=== PATIENT | male | born 1935 | race Caucasian/White ===

== ENCOUNTER 2017-08-16 06:10 | Emergency (ER) | payer OTHER ==
[~2017-08-16] VITALS: Ht 180.3 cm; Wt 87.7 kg
[2017-08-16 06:11] VITALS: TEMP 36.8; Ht 180.3 cm; Wt 87.7 kg
[2017-08-16 06:25] VITALS: O2SAT 93
[2017-08-16 06:43] LABS: BASO % 0.1 %; BASO ABS # 0.02 K/uL (0-0.2); EOS % 0.2 %; EOS ABS # 0.03 K/uL (0-0.5); HEMATOCRIT 41.2 % (42-52); HEMOGLOBIN 14.6 g/dL (14.0-18.0); IG# 0.03 K/uL (0.00-0.02); LYMPH % 6.1 %; LYMPH ABS # 0.87 K/uL (1.2-3.4); MEAN CELL VOLUME 90.2 fL (80-100); MEAN CORPUSCULAR HEMOGLOBIN 31.9 pg (25-34); MEAN CORPUSCULAR HGB CONC 35.4 g/dl (32-36); MEAN PLATELET VOLUME 8.8 fL (7.4-10.4); MONO % 11.3 %; NEUT % 82.1 %; NEUT ABS # 11.67 K/uL (1.4-6.5); PLATELET COUNT 190 K/uL (130-400); RED CELL DISTRIBUTION WIDTH CV 14.1 % (11.5-14.5); RED CELL DISTRIBUTION WIDTH SD 46.7 fL (36.4-46.3); WHITE BLOOD COUNT 14.22 K/uL (4.8-10.8)
--- NOTE | 2017-08-16 06:49 | EMERGENCY ROOM VISIT NOTE ---
History Report prepared by Imelda: Herberth Shafer Under the Supervision of: Dr. Jp Seals D.O. First contact with patient: 06:14 Chief Complaint: FALL Stated Complaint: FALL History of Present Illness The patient is a 81 year old male who presents to the Emergency Room via ALS following a falling episode that occurred around 0330 this morning, 3 hours ago. Per EMS, the patient's found him lying in the bathtub this morning when she got up to use the restroom. The patient had gotten up to use the restroom himself; when he stood up from the toilet he lost his balance and fell backward into the bathtub. He is currently complaining of pain in his hips bilaterally. EMS note that he was also initially complaining of nausea and lower back pain on their evaluation. After initial examination the patient's arrived at bedside who notes that he seems to be at his normal mental status at this time. The patient has a history of a subdural hematoma that required surgery, and is on Coumadin for atrial fibrillation. The subdural was over 5 years ago. Source of History: patient, spouse/significant other, EMS Onset: 3 hours ago Position: leg (bilateral hips) Quality: other (Pain from fall) Timing: other (Hip pain since fall 3 hours ago) Associated Symptoms: + nausea, + back pain Review of Systems See HPI for pertinent positives & negatives. A total of 10 systems reviewed and were otherwise negative. Past Medical & Surgical Medical Problems: (1) Atrial fibrillation (2) HTN (hypertension) (3) Stroke (4) Subdural hematoma Atrial fibrillation HTN (hypertension) Family History Non-contributory secondary to age. Social History Smoking Status: Never Smoker Marital Status: Housing Status: lives with significant other Occupation Status: retired Current/Historical Medications Scheduled Amiodarone Hcl (Cordarone), 200 MG PO DAILY Apixaban (Eliquis), 5 MG PO DAILY Atorvastatin (Lipitor), 10 MG PO DAILY Cholecalciferol (Vitamin D3), 1,000 MG PO DAILY Coenzyme Q10 (Ubidecarenone) (Co Q-10), 1 CAP PO DAILY Bocbzdoadfw-Odaegpuxrlm-Tdh C- (Glucosamine Chondroitin), 1 TAB PO DAILY Lamotrigine (Lamotrigine Er), 50 MG PO DAILY Lamotrigine (Lamotrigine Er), 300 MG PO DAILY Levetiracetam (Keppra), 1,500 MG PO BID Multiple Vitamins W/ Minerals (Centrum Silver 50+Men), 1 TAB PO DAILY Nebivolol Hcl (Bystolic), 30 MG PO HS [place]-3 Fatty Acids (Fish Oil), 2,000 MG PO BID Verapamil Hcl (Verapamil Hcl Sr), 180 MG PO BID Allergies Coded Allergies: No Known Allergies (Unverified , 08/16/17) Physical Exam Vital Signs Date Time Temp Pulse Resp B/P (MAP) Pulse Ox O2 Delivery O2 Flow Rate FiO2 08/16/17 09:00 70 16 148/86 95 Room Air 08/16/17 08:00 71 20 160/89 96 Room Air 08/16/17 07:35 70 20 173/104 96 Room Air 08/16/17 06:25 93 Room Air 08/16/17 06:19 73 08/16/17 06:11 36.8 74 20 178/100 92 Room Air Physical Exam GENERAL: Patient is awake, alert, and in no acute distress. Patient is resting comfortably and showing no signs of anxiety EYES: The conjunctivae are clear. The pupils are round and reactive. EARS, NOSE, MOUTH AND THROAT: The nose is without any evidence of any deformity. Mucous membranes are moist tongue is midline NECK: There is no tenderness to palpation and ROM did not appear limited secondary to pain. RESPIRATORY: Normal respiratory effort is noted there is no evidence of wheezing rhonchi or rales CARDIOVASCULAR: Regular rate and rhythm noted there no murmurs rubs or gallops normal S1 normal S2 GASTROINTESTINAL: The abdomen is soft. Bowel sounds are present in all quadrants. Abdomen is nontender BACK: No midline tenderness to palpation or or step-off noted range of motion in flexion extension as well as rotation no signs of muscle spasm noted MUSCULOSKELETAL/EXTREMITIES: There is no evidence of gross deformity full range of motion is noted in the hips and shoulders SKIN: There is no obvious evidence of any rash. There are no petechiae, pallor or cyanosis noted. There is trace pedal edema bilaterally with mild venous stasis changes noted. NEUROLOGIC: Patient is awake and oriented to person and place, but not time. The patient appears to be word finding and answers some questions obviously incorrectly. There is no drift appreciated in the upper/lower extremities. There is no facial droop. At this time the significant other feels the patient at baseline. Medical Decision & Procedures ER Provider Diagnostic Interpretation: Radiology results as stated below per my review and radiologist interpretation: CERVICAL SPINE W/O CT DOSE: 493.20 mGycm CLINICAL HISTORY: 82 years-old Male with fall. Acute neck pain status post fall COMPARISON: CT head of same day. TECHNIQUE: Multiple axial CT images of the cervical spine were obtained without contrast. A dose lowering technique was utilized adhering to the principles of ALARA. FINDINGS: Bones appear moderately demineralized. Mild levoscoliosis of the cervical spine. Indeterminate mixed lucent and sclerotic nonaggressive appearing 11 x 6 mm lesion involves the right temporal bone inferior to the mastoid air cells. There is no acute cervical spine fracture or subluxation identified. There are multiple degenerative changes about the cervical spine including severe intervertebral disc space narrowing at C3-C4, C5-C6 and C6-C7 with moderate intervertebral disc space narrowing at C4-C5. Moderate multilevel spondylitic spurring and facet arthrosis. Corticated bone fragments posterior to the seventh spinous process suggests chronic avulsion fracture. 3 mm retrolisthesis C3 on C4 likely secondary to long-standing facet disease. Evaluation for central canal and foraminal narrowing is better assessed by MRI. There is however suggestion of severe bilateral foraminal narrowing at C3-C4 with a least moderate foraminal stenosis bilaterally at C4-C5 and C5-C6. Pacer leads within the distribution of the left subclavian vein are partially imaged. No pneumothorax. Mild calcification of the bilateral carotid bulb. Soft tissues are within normal limits. IMPRESSION: No acute cervical spine fracture or subluxation. The above report was generated using voice recognition software. It may contain grammatical, syntax or spelling errors. Electronically signed by: Sampson Ralph M.D. 08/16/2017 7:11 AM Dictated Date/Time: 08/16/2017 7:06 AM CHEST 2 VIEWS ROUTINE HISTORY: 82 years-old Male WEAKNESS acute weakness with fall COMPARISON: None available TECHNIQUE: PA and lateral views of the chest FINDINGS: Cardiomediastinal and hilar silhouettes are within normal limits. Atherosclerosis of the aorta. Left subclavian pacer is noted with leads overlying the expected locations of the right atrium and right ventricle. Mild biapical pleural-parenchymal scarring without pneumothorax, pleural effusion or overt pulmonary edema. Moderate left hemidiaphragmatic elevation with subsegmental left basilar opacities. Degenerative changes of the shoulders and spine. The patient is mildly rotated. IMPRESSION: 1. No acute process identified. 2. Moderate left hemidiaphragm elevation with subsegmental left basilar opacities suggesting atelectasis/scarring. The above report was generated using voice recognition software. It may contain grammatical, syntax or spelling errors. Electronically signed by: Sampson Ralph M.D. 08/16/2017 7:18 AM Dictated Date/Time: 08/16/2017 7:17 AM HEAD WITHOUT CONTRAST (CT) CLINICAL HISTORY: 82 years-old Male presenting with EVALUATE ALTERED MENTAL STATUS/WEAKNESS, history of intracranial hemorrhage, fall. TECHNIQUE: Multidetector CT imaging of the head was performed without the use of intravenous contrast. IV contrast: None. A dose lowering technique was used consistent with the principles of ALARA (as low as reasonably achievable). COMPARISON: None. CT DOSE (mGy.cm): The estimated cumulative dose is 638.56 mGycm. FINDINGS: Dry Goods Clerk topogram: Postsurgical changes of prior craniotomy. 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 No hydrocephalus. Periventricular and subcortical white matter hypoattenuation, nonspecific but likely indicative of chronic small vessel ischemic change. Old appearing infarct in the right caudate head and left basal ganglia. Minimal calcification evident in the left frontal lobe, possibly postsurgical or sequela of prior hemorrhage. The left pterional craniotomy overlies this region. No mass effect or midline shift. No acute hemorrhage or acute territorial infarct. Trace extra-axial hyperdense material subjacent to the craniotomy likely represents chronic dural changes. No convincing evidence of an acute extra-axial hemorrhage. Paranasal sinuses and mastoid air cells clear. No acute osseous injury of the calvarium. IMPRESSION: 1. No acute intracranial abnormality. 2. Postsurgical changes of left renal craniotomy and encephalomalacia in the left frontal lobe likely from prior reported hemorrhage. 3. Old lacunar infarcts in the basal ganglia suspected. Electronically signed by: Ramon Shields M.D. 08/16/2017 7:06 AM Dictated Date/Time: 08/16/2017 7:00 AM PELVIS 1 OR 2 VIEW ROUTINE HISTORY: 82 years-old Male fall acute pelvic pain status post fall COMPARISON: None available TECHNIQUE: Single AP view of the pelvis FINDINGS: The bones appear mildly demineralized. There are moderate degenerative changes about the bilateral femoral acetabular joints without acute fracture or dislocation identified. Phleboliths of the pelvis are noted. There is no acute fracture or dislocation identified. Degenerative changes of the cervical spine are also noted. IMPRESSION: No acute fracture or dislocation. The above report was generated using voice recognition software. It may contain grammatical, syntax or spelling errors. Electronically signed by: Sampson Ralph M.D. 08/16/2017 7:19 AM Dictated Date/Time: 08/16/2017 7:18 AM Laboratory Results 08/16/17 06:25 Red Blood Count 4.57, Mean Corpuscular Volume 90.2, Mean Corpuscular Hemoglobin 31.9, Mean Corpuscular Hemoglobin Concent 35.4, Mean Platelet Volume 8.8, Neutrophils (%) (Auto) 82.1, Lymphocytes (%) (Auto) 6.1, Monocytes (%) (Auto) 11.3, Eosinophils (%) (Auto) 0.2, Basophils (%) (Auto) 0.1, Neutrophils # (Auto ) 11.67, Lymphocytes # (Auto) 0.87, Monocytes # (Auto) 1.60, Eosinophils # (Auto ) 0.03, Basophils # (Auto) 0.02 08/16/17 06:25 Test 08/16/17 06:25 08/16/17 06:38 White Blood Count 14.22 K/uL (4.8-10.8) Red Blood Count 4.57 M/uL (4.7-6.1) Hemoglobin 14.6 g/dL (14.0-18.0) Hematocrit 41.2 % (42-52) Mean Corpuscular Volume 90.2 fL (80-100) Mean Corpuscular Hemoglobin 31.9 pg (25-34) Mean Corpuscular Hemoglobin Concent 35.4 g/dl (32-36) Platelet Count 190 K/uL (130-400) Mean Platelet Volume 8.8 fL (7.4-10.4) Neutrophils (%) (Auto) 82.1 % Lymphocytes (%) (Auto) 6.1 % Monocytes (%) (Auto) 11.3 % Eosinophils (%) (Auto) 0.2 % Basophils (%) (Auto) 0.1 % Neutrophils # (Auto) 11.67 K/uL (1.4-6.5) Lymphocytes # (Auto) 0.87 K/uL (1.2-3.4) Monocytes # (Auto) 1.60 K/uL (0.11-0.59) Eosinophils # (Auto) 0.03 K/uL (0-0.5) Basophils # (Auto) 0.02 K/uL (0-0.2) RDW Standard Deviation 46.7 fL (36.4-46.3) RDW Coefficient of Variation 14.1 % (11.5-14.5) Immature Granulocyte % (Auto) 0.2 % Immature Granulocyte # (Auto) 0.03 K/uL (0.00-0.02) Prothrombin Time 10.1 SECONDS (9.0-12.0) Prothromb Time International Ratio 1.0 (0.9-1.1) Activated Partial Thromboplast Time 27.3 SECONDS (21.0-31.0) Partial Thromboplastin Ratio 1.1 Anion Gap 7.0 mmol/L (3-11) Est Creatinine Clear Calc Drug Dose 60.3 ml/min Estimated GFR () 78.2 Estimated GFR (Non- 67.5 BUN/Creatinine Ratio 16.4 (10-20) Calcium Level 8.6 mg/dl (8.5-10.1) Magnesium Level 2.0 mg/dl (1.8-2.4) Total Bilirubin 0.7 mg/dl (0.2-1) Direct Bilirubin 0.2 mg/dl (0-0.2) Aspartate Amino Transf (AST/SGOT) 18 U/L (15-37) Alanine Aminotransferase (ALT/SGPT) 29 U/L (12-78) Alkaline Phosphatase 110 U/L (45-117) Total Creatine Kinase 70 U/L (39-308) Creatine Kinase MB 0.8 ng/ml (0.5-3.6) Creatine Kinase MB Ratio 1.1 (0-3.0) Troponin I < 0.015 ng/ml (0-0.045) Total Protein 7.7 gm/dl (6.4-8.2) Albumin 3.4 gm/dl (3.4-5.0) Thyroid Stimulating Hormone (TSH) 2.430 uIu/ml (0.300-4.500) Urine Color YELLOW Urine Appearance CLEAR (CLEAR) Urine pH 6.5 (4.5-7.5) Urine Specific [place] 1.022 (1.000-1.030) Urine Protein TRACE (NEG) Urine Glucose (UA) NEG (NEG) Urine Ketones NEG (NEG) Urine Occult Blood NEG (NEG) Urine Nitrite NEG (NEG) Urine Bilirubin NEG (NEG) Urine Urobilinogen NEG (NEG) Urine Leukocyte Esterase NEG (NEG) Urine WBC (Auto) 0 /hpf (0-5) Urine RBC (Auto) 0-4 /hpf (0-4) Urine Hyaline Casts (Auto) 0 /lpf (0-5) Urine Epithelial Cells (Auto) 5-10 /lpf (0-5) Urine Bacteria (Auto) NEG (NEG) Laboratory results per my review. ECG Per My Interpretation Indication: nausea Rate (beats per minute): 72 Rhythm: other (Atrially Paced) Findings: paced rhythm, other (No PVCs, No ST-segment abnormalities) Comparison ECG Date: no prior available ED Course 0624: The patient was evaluated in room B6. A complete history and physical examination were performed. 0724: I checked on the patient at this time. He is doing well. 0849: Upon reevaluation, the patient is resting in bed. I discussed the results and treatment plan with he and his . They verbalized agreement of the treatment plan. The patient was discharged home. Medical Decision Differential diagnosis: Etiologies such as fracture, dislocation, intra-abdominal, pneumothorax, intrathoracic , intracranial, neurologic, as well as other traumatic pathologies were entertained. Nursing notes reviewed. Additional history is obtained from the prehospital personnel. Additional history is obtained from the patient's significant other. The patient is an 82-year-old male who presented to the emergency department for an evaluation after fall. Currently the patient is visiting his granddaughter is not from [place]. The patient currently takes blood thinners for atrial fibrillation. He has a history of a subdural hematoma in the past. This was treated surgically. This was approximately 5 years ago. The patient was found in the bathtub he states that he lost balance while getting off of the toilet. He appeared somewhat confused but according to his significant other he is at his baseline at this time. I discussed patient's laboratory and radiographic studies with him. He was found to have a mild elevation in his white blood cell count but no source of infection was noted on urinalysis or chest x-ray. The patient did not have a fever. I feel this likely represents an elevation in his white blood cell count because of the fall. The patient was encouraged to continue all medications as prescribed. He was given his morning medications. He had an ambulation trial with nursing. He appears to be unsteady but his significant other states that he is very near his baseline. They were encouraged to continue all medications as prescribed. Since they are not from the area and are not leaving until next week there were encouraged to return to the emergency department immediately if symptoms change worsen or the need arises. I discussed the case with the emergency department family independence case manager. We will try to get the patient a walker to use while he is in our area given the patient's unsteady gait. The patient has used a walker in the past and is aware of how to use this. Medication Reconcilliation Current Medication List: was personally reviewed by me Blood Pressure Screening Patient's blood pressure: Elevated blood pressure Impression Primary Impression: Fall Additional Impression: Head injury Scribe Attestation The scribe's documentation has been prepared under my direction and personally reviewed by me in its entirety. I confirm that the note above accurately reflects all work, treatment, procedures, and medical decision making performed by me. Departure Information Dispostion Home / Self-Care Referrals No Doctor, Assigned (PCP) Forms HOME CARE DOCUMENTATION FORM, IMPORTANT VISIT INFORMATION Patient Instructions My [facility] Additional Instructions Continue all medications as prescribed. Continue using Tylenol as directed for pain. Try to ambulate with assistance. Return to the emergency department immediately if symptoms change worsen or the need arises. Especially if you develop any signs of head injury such as seizure weakness severe headache or if need arises. Problem Qualifiers Primary Impression: Fall Encounter type: initial encounter Qualified Codes: W19.XXXA - Unspecified fall, initial encounter Additional Impression: Head injury Encounter type: initial encounter Qualified Codes: S09.90XA - Unspecified injury of head, initial encounter
[2017-08-16 06:52] LABS: PTT PATIENT 27.3 SECONDS (21.0-31.0)
--- NOTE | 2017-08-16 07:07 | DIAGNOSTIC IMAGING REPORT ---
HEAD WITHOUT CONTRAST (CT) CLINICAL HISTORY: 82 years-old Male presenting with EVALUATE ALTERED MENTAL STATUS/WEAKNESS, history of intracranial hemorrhage, fall. TECHNIQUE: Multidetector CT imaging of the head was performed without the use of intravenous contrast. IV contrast: None. A dose lowering technique was used consistent with the principles of ALARA (as low as reasonably achievable). COMPARISON: None. CT DOSE (mGy.cm): The estimated cumulative dose is 638.56 mGycm. FINDINGS: Manager Travel topogram: Postsurgical changes of prior craniotomy. 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 No hydrocephalus. Periventricular and subcortical white matter hypoattenuation, nonspecific but likely indicative of chronic small vessel ischemic change. Old appearing infarct in the right caudate head and left basal ganglia. Minimal calcification evident in the left frontal lobe, possibly postsurgical or sequela of prior hemorrhage. The left pterional craniotomy overlies this region. No mass effect or midline shift. No acute hemorrhage or acute territorial infarct. Trace extra-axial hyperdense material subjacent to the craniotomy likely represents chronic dural changes. No convincing evidence of an acute extra-axial hemorrhage. Paranasal sinuses and mastoid air cells clear. No acute osseous injury of the calvarium. IMPRESSION: 1. No acute intracranial abnormality. 2. Postsurgical changes of left renal craniotomy and encephalomalacia in the left frontal lobe likely from prior reported hemorrhage. 3. Old lacunar infarcts in the basal ganglia suspected. Electronically signed by: Ramon Shields M.D. 08/16/2017 7:06 AM Dictated Date/Time: 08/16/2017 7:00 AM
[2017-08-16 07:11] LABS: ALBUMIN 3.4 gm/dl (3.4-5.0); ALKALINE PHOSPHATASE 110 U/L (45-117); ALT/SGPT 29 U/L (12-78); AST/SGOT 18 U/L (15-37); BLOOD UREA NITROGEN 17 mg/dl (7-18); CALCIUM 8.6 mg/dl (8.5-10.1); CARBON DIOXIDE 28 mmol/L (21-32); CKMB 0.8 ng/ml (0.5-3.6); CREATININE 1.04 mg/dl (0.60-1.40); GLUCOSE 125 mg/dl (70-99); POTASSIUM 3.4 mmol/L (3.5-5.1); SODIUM 141 mmol/L (136-145); TOTAL PROTEIN 7.7 gm/dl (6.4-8.2)
[2017-08-16] MEDS ORDERED: COEN75CA PO (07:13)
[2017-08-16] MEDS ORDERED: MULT-1093 PO (07:13)
[2017-08-16] MEDS ORDERED: GLUCTAB7 PO (07:13)
[2017-08-16] MEDS ORDERED: ATOR10TA82 PO (07:13)
[2017-08-16] MEDS ORDERED: AMIO200T4 PO (07:13)
[2017-08-16] MEDS ORDERED: NEBI10TA2 PO ×2 (07:13→22:18)
[2017-08-16] MEDS ORDERED: VERA180C3 PO (07:13)
[2017-08-16] MEDS ORDERED: LAMO1TAB75 PO (07:13)
[2017-08-16] MEDS ORDERED: CHOL1CAP57 PO (07:13)
[2017-08-16] MEDS ORDERED: KPP/750 PO (07:13)
[2017-08-16] MEDS ORDERED: OMEG10002 PO (07:13)
[2017-08-16] MEDS ORDERED: APIX1TAB PO (07:13)
[2017-08-16] MEDS ORDERED: LAMO1TAB79 PO (07:13)
--- NOTE | 2017-08-16 07:13 | DIAGNOSTIC IMAGING REPORT ---
CERVICAL SPINE W/O CT DOSE: 493.20 mGycm CLINICAL HISTORY: 82 years-old Male with fall. Acute neck pain status post fall COMPARISON: CT head of same day. TECHNIQUE: Multiple axial CT images of the cervical spine were obtained without contrast. A dose lowering technique was utilized adhering to the principles of ALARA. FINDINGS: Bones appear moderately demineralized. Mild levoscoliosis of the cervical spine. Indeterminate mixed lucent and sclerotic nonaggressive appearing 11 x 6 mm lesion involves the right temporal bone inferior to the mastoid air cells. There is no acute cervical spine fracture or subluxation identified. There are multiple degenerative changes about the cervical spine including severe intervertebral disc space narrowing at C3-C4, C5-C6 and C6-C7 with moderate intervertebral disc space narrowing at C4-C5. Moderate multilevel spondylitic spurring and facet arthrosis. Corticated bone fragments posterior to the seventh spinous process suggests chronic avulsion fracture. 3 mm retrolisthesis C3 on C4 likely secondary to long-standing facet disease. Evaluation for central canal and foraminal narrowing is better assessed by MRI. There is however suggestion of severe bilateral foraminal narrowing at C3-C4 with a least moderate foraminal stenosis bilaterally at C4-C5 and C5-C6. Pacer leads within the distribution of the left subclavian vein are partially imaged. No pneumothorax. Mild calcification of the bilateral carotid bulb. Soft tissues are within normal limits. IMPRESSION: No acute cervical spine fracture or subluxation. The above report was generated using voice recognition software. It may contain grammatical, syntax or spelling errors. Electronically signed by: Sampson Ralph M.D. 08/16/2017 7:11 AM Dictated Date/Time: 08/16/2017 7:06 AM
--- NOTE | 2017-08-16 07:19 | DIAGNOSTIC IMAGING REPORT ---
CHEST 2 VIEWS ROUTINE HISTORY: 82 years-old Male WEAKNESS acute weakness with fall COMPARISON: None available TECHNIQUE: PA and lateral views of the chest FINDINGS: Cardiomediastinal and hilar silhouettes are within normal limits. Atherosclerosis of the aorta. Left subclavian pacer is noted with leads overlying the expected locations of the right atrium and right ventricle. Mild biapical pleural-parenchymal scarring without pneumothorax, pleural effusion or overt pulmonary edema. Moderate left hemidiaphragmatic elevation with subsegmental left basilar opacities. Degenerative changes of the shoulders and spine. The patient is mildly rotated. IMPRESSION: 1. No acute process identified. 2. Moderate left hemidiaphragm elevation with subsegmental left basilar opacities suggesting atelectasis/scarring. The above report was generated using voice recognition software. It may contain grammatical, syntax or spelling errors. Electronically signed by: Sampson Ralph M.D. 08/16/2017 7:18 AM Dictated Date/Time: 08/16/2017 7:17 AM
--- NOTE | 2017-08-16 07:20 | DIAGNOSTIC IMAGING REPORT ---
PELVIS 1 OR 2 VIEW ROUTINE HISTORY: 82 years-old Male fall acute pelvic pain status post fall COMPARISON: None available TECHNIQUE: Single AP view of the pelvis FINDINGS: The bones appear mildly demineralized. There are moderate degenerative changes about the bilateral femoral acetabular joints without acute fracture or dislocation identified. Phleboliths of the pelvis are noted. There is no acute fracture or dislocation identified. Degenerative changes of the cervical spine are also noted. IMPRESSION: No acute fracture or dislocation. The above report was generated using voice recognition software. It may contain grammatical, syntax or spelling errors. Electronically signed by: Sampson Ralph M.D. 08/16/2017 7:19 AM Dictated Date/Time: 08/16/2017 7:18 AM
[2017-08-16] MEDS ORDERED: ONDANSETRON HOME PACK 4MG OD TAB PO ONE (11:00)
[2017-08-16 11:30] VITALS: BP 129/72; PULSE 70; O2SAT 95
[2017-08-18] MEDS ORDERED: ATOR-24 PO ×3 (11:17→11:24)
[2017-08-18] MEDS ORDERED: APIX1TAB3 PO ×3 (11:17→11:24)
== END 2017-08-16 11:35 | disposition home or self-care (01) ==
LOC: C.EDB 06:15 → EDBD 06:15 → C.EDB 11:35
DX: S09.90XA Unspecified injury of head, initial encounter (principal); W19.XXXA Unspecified fall, initial encounter; I48.91 Unspecified atrial fibrillation; I10 Essential (primary) hypertension; I63.9 Cerebral infarction, unspecified